=== PATIENT | female | born 1980 | race Two or more races ===

== ENCOUNTER 2022-10-14 11:37 | Outpatient (REF) | payer BC, SELFPAY ==
[2022-10-14 14:03] LABS: MANUAL DIFF FLAG NO
[2022-10-14 14:13] LABS: Basophils Percent Auto 0.5 % (0-2); Eosinophils Absolute Auto 0.2 X10*3/uL (0.0-0.4); Eosinophils Percent Auto 2.3 % (0-4); Hematocrit 38.4 % (37.0-47.0); Hemoglobin 12.8 g/dl (12.0-16.0); Imm Gran Abs Auto 0.01 X10*3/uL (0.00-0.03); Imm Gran Pct Auto 0.1 % (0.0-0.4); Lymphocytes Absolute Auto 2.7 X10*3/uL (1.2-4.9); Lymphocytes Percent Auto 35.6 % (20-40); Mean Corpuscular HGB Conc 33.3 g/dl (31.0-35.0); Mean Corpuscular Hemoglobin 28.9 pg (27.0-33.0); Mean Corpuscular Volume 86.7 fL (80.0-98.0); Mean Platelet Volume 10.3 fL (9.4-12.3); Monocytes Absolute Auto 0.4 X10*3/uL (0.1-1.2); Monocytes Percent Auto 4.8 % (2-11); Neutrophils Absolute Auto 4.2 x10*3/uL (2.0-8.3); Neutrophils Percent Auto 56.7 % (45-73); Platelet Count 334 X10*3/uL (160-400); Red Blood Count 4.43 X10*6/uL (4.20-5.50); Red Cell Distribution Width 12.2 % (11.0-16.0); White Blood Count 7.5 X10*3/uL (4.8-10.8)
[2022-10-14 14:47] LABS: Alanine Aminotransferase 19 U/L (0-31); Albumin Level 4.5 g/dL (3.5-5.0); Alkaline Phosphatase 41 U/L (39-117); Anion Gap 12 (12-20); Aspartate Amino Transferase 21 U/L (5-31); Bilirubin Total 0.3 mg/dL (0.0-1.0); Blood Urea Nitrogen 7 mg/dL (9-16); Calcium 9.4 mg/dL (8.4-10.2); Carbon Dioxide 22 mmol/L (22-29); Chloride 108 mmol/L (96-108); Cholesterol 180 mg/dL; Estimated Glomerular Filt Rate > 60; Glucose Fasting 94 mg/dL (60-99); HDL Cholesterol 34 mg/dL; LDL Cholesterol Calculated 98 mg/dl; Potassium 4.2 mmol/L (3.3-5.1); Sodium 138 mmol/L (135-145); Total Protein 7.7 g/dL (6.5-8.0); Triglycerides 240 mg/dL
[2022-10-14 14:49] LABS: TSH reflex Free T4 1.36 uIU/mL (0.32-4.0)
[2022-10-17 16:23] LABS: Vitamin D 25-OH, D2 <4 ng/mL; Vitamin D 25-OH, D3 31 ng/mL; Vitamin D 25-OH, Total 31 ng/mL (30-100)
== END 2022-10-14 11:38 | disposition home or self-care (01) ==
LOC: HO.HMGCLDS 11:37
PROVIDERS: Visit Provider Internal Medicine
DX: Z00.01 Encounter for general adult medical examination with abnormal findings (principal); E66.3 Overweight; R53.83 Other fatigue
CPT/HCPCS: 36415; 80053; 80061; 82306; 84443; 85025

== ENCOUNTER 2022-11-04 08:21 | Outpatient (REF) | payer BC, SELFPAY ==
--- NOTE | ~2022-11-04 | MM_ITS ---
EXAMINATION: MM SCREENING DIGITAL BREAST TOMOSYNTHESIS, BILATERAL CLINICAL INFORMATION: Screening. Asymptomatic. The lifetime risk of breast cancer based on the Tyrer-Cuzick Model is 7.9%. COMPARISON: Mammography: None TECHNIQUE: Digital breast tomosynthesis is performed in both the craniocaudal and mediolateral oblique views along with computer-aided detection (CAD). Synthesized 2D images are generated from the tomosynthesis. FINDINGS: The breasts are heterogeneously dense, which may obscure small masses (ACR BI-RADS breast composition Category c). No significant right breast abnormality is appreciated. No abnormal dominant mass or suspicious grouping of microcalcifications. There is multiplicity and bilaterality of scattered calcifications. In the retroareolar region of the left breast there is a 5 mm circumscribed density for which spot compression view is recommended. If there is persistence of the density then ultrasound could be performed at that time. MM/MM tomosynthesis screening BI IMPRESSION: Left breast retroareolar density for further evaluation ASSESSMENT: BI-RADS 0: Incomplete - Need Additional Imaging Evaluation RECOMMENDATION: 1. Additional views of the left breast. 2. Targeted ultrasound if warranted after review of the additional views. 3. Radiology department staff will contact the patient for additional imaging. This patient's information was entered into a reminder system with a target due date for their next mammogram.
== END 2022-11-04 08:22 | disposition home or self-care (01) ==
LOC: HO.MAMMO 08:21
PROVIDERS: PCP Internal Medicine; Visit Provider Internal Medicine
DX: Z12.31 Encounter for screening mammogram for malignant neoplasm of breast (principal)
CPT/HCPCS: 77063; 77067

== ENCOUNTER 2022-11-28 15:00 | Outpatient (REF) | payer BC, SELFPAY ==
--- NOTE | ~2022-11-28 | MM_ITS ---
EXAMINATION: MM DIAGNOSTIC DIGITAL BREAST TOMOSYNTHESIS, LEFT TARGETED LEFT BREAST ULTRASOUND CLINICAL INFORMATION: Retroareolar density. COMPARISON: Mammography: 11/04/2022 TECHNIQUE: Digital breast tomosynthesis is performed. 2D images are generated from the tomosynthesis. The following views are obtained: Spot compression views in craniocaudal and mediolateral oblique views. FINDINGS: The breasts are heterogeneously dense, which may obscure small masses (ACR BI-RADS breast composition Category c). Supplementary imaging demonstrates persistence of an approximately 5 x 4 mm circumscribed density about the lateral subareolar region. Targeted ultrasound evaluation demonstrates a 4 x 4 by 4 mm simple-appearing cyst with smooth wall and increased through sound transmission and no sound shadowing. Results are discussed with the patient at time of visit. MM/MM tomosynthesis added views L IMPRESSION: Retroareolar density left breast corresponds to a simple cyst. ASSESSMENT: BI-RADS 2: Benign RECOMMENDATION: Routine annual mammography screening due in 12 months. This patient's information was entered into a reminder system with a target due date for their next mammogram.
== END 2022-11-28 15:01 | disposition home or self-care (01) ==
LOC: HO.MAMMO 15:00
PROVIDERS: PCP Internal Medicine; Visit Provider Internal Medicine
DX: R92.2 Inconclusive mammogram (principal)
CPT/HCPCS: 76642; 77061; 77065

== ENCOUNTER 2023-11-17 08:38 | Outpatient (AMB) | payer BC, SELFPAY ==
[2023-11-17 08:45] VITALS: BP 120/78; PULSE 84; O2SAT 100; BMI 27.8
--- NOTE | 2023-11-17 08:45 | A.OFFPC_ITS ---
Vital Signs 11/17/23 08:45 Height 5 ft 1 in Weight 147 lb 2 oz BMI 27.8 BP 120/78 Blood Pressure Location Lt brachial Position Sitting Pulse 84 Pulse Source Pulse Oximeter Pulse Oximetry (%) 100 Oxygen Delivery Method Room Air Intake Visit Reasons: Annual PE Allergies Environmental Allergy (Unknown, Uncoded 11/17/23 08:48) Unknown pollen Allergy (Unknown, Uncoded 11/17/23 08:48) Unknown Medication List - Last Reconciled 11/17/23 by Tavares Richardson MD No Known Home Meds Tobacco use date assessed: 11/17/23 Dental Screening Dental Screen Date: 11/17/23 Did you have a dental visit in the last 12 months?: No Did you have a dental problem in the last 6 months where you did not have access to dental care?: No Was dental information given to patient?: Patient has dentist HPI Annual PE HPI Details Patient is a 43-year-old female came in today for physical examination Patient is concerned about her weight her BMI is 27.8, we talked about losing about for 5 lb to become in normal BMI range She is exercising and trying to eat healthy Also complaining of some hair loss, on examination she does not have any scalp condition And I do not see any bald spots Labs were done last year reviewed Lipids are within normal range, no anemia, no elevation of fasting sugar, vitamin-D level was normal, and TSH level was normal We will be skipping labs this year She will be due for mammogram in November order placed Patient have OBGYN at [facility]. Breast exam was done today [facility] Social History Housing: House Patient Tobacco Use Status: Never used Tobacco e-Cigarette/Vaping Use: Never Used service: No Current occupational status: employed Cognitive needs: No Hearing needs: No Vision needs: Yes Questionnaire PHQ-9 Over the last 2 weeks, how often have you been bothered by any of the following problems? 1. Little interest or pleasure in doing things: not at all 2. Feeling down, depressed, or hopeless: several days 3. Trouble falling or staying asleep, or sleeping too much: not at all 4. Feeling tired or having little energy: several days 5. Poor appetite or overeating: not at all 6. Feeling bad about yourself - or that you are a failure or have let yourself or your family down: several days 7. Trouble concentrating on things, such as reading the newspaper or watching television: not at all 8. Moving or speaking so slowly that other people could have noticed. Or the opposite - being so fidgety or restless that you have been moving around a lot more than usual: not at all 9. Thoughts that you would be better off or of hurting yourself in some way: not at all Total score: 3 Depression Screening Interpretation: Negative Depression Screening Done: Yes 80817 - PHQ-9 Billing: Yes Source: Developed by Drs. Daquan Sam, Stephanie Austin, Rommel Stephens and colleagues, with an educational julia from [employer]. Thrive Questionnaire Date Thrive assessed: 11/17/23 I am a: Patient What is your living situation today?: I have a steady place to live Within the past 12 months, did the food you bought not last and you didn't have the money to get more?: Never true Within the past 12 months, did you worry whether your food would run out before you got money to buy more?: Never true Do you have trouble paying for medicines?: No Do you have trouble getting transportation to medical appointments?: No Do you have trouble paying your heating and electricity bill?: No Do you have trouble taking care of your child, family member or friend?: No Do you have trouble with day-to-day activities such as bathing, preparing meals, shopping, managing finances, etc.?: No Are you currently unemployed and looking for a job?: No Are you interested in more education?: No Please select the resources that you would like help with: None Currently or been in a relationship where the following occur: no concerns reported THRIVE Score: 0 DAMEON-7 AMB Questionnaire DAMEON-7 Date DAMEON - 7 assessed: 11/17/23 Feeling nervous, anxious, or on edge: 1 = Several days Not being able to stop or control worryin = Several days Worrying too much about different things: 1 = Several days Trouble relaxin = Not at all Being so restless that it is hard to sit still: 0 = Not at all Becoming easily annoyed or irritable: 0 = Not at all Feeling afraid as if something awful might happen: 0 = Not at all Total DAMEON-7 score (0-4 normal; 5-9 mild; 10-14 moderate; 15-21 severe): 3 Source: Developed by Drs. Daquan Sam, Stephanie Austin, Rommel Stephens and colleagues, with an educational julia from [employer]. DAMEON-7 Assessment Billing DAMEON-7 Assessment Tool: DAMEON-7 Assessment 71648 Review of Systems Const Denies chills, Denies fever(s) and Denies headache(s) Eyes Denies blurry vision ENT Denies headache(s), Denies nasal discharge, Denies nasal obstruction, Denies odynophagia and Denies sinus pain Card Denies chest pain at rest and Denies chest pain with activity Resp Denies cough and Denies hemoptysis GI Denies diarrhea, Denies odynophagia, Denies vomiting and Denies hematemesis Reports as per HPI Musc Denies abnormal gait Skin/Breast Reports as per HPI Neuro Denies Neuro-related abnormal movements, Denies Abnormal speech present, Denies abnormal gait, Denies headache(s) and Denies Sensory deficit (Neuro) Psych Denies mood swings and Denies paranoia Endo Reports as per HPI Bassem/Lymph Reports as per HPI Aller/Immun Reports as per HPI Physical exam (Primary Care) Vital Signs: Last Vital Signs Pulse 84 11/17/23 08:45 BP 120/78 11/17/23 08:45 Pulse Ox 100 11/17/23 08:45 Oxygen Delivery Method Room Air 11/17/23 08:45 BMI result Body Mass Index 27.8 Tobacco/Smoking Status: Tobacco use Status Tobacco use date assessed 11/17/23 11/17/23 08:48 Patient Tobacco Use Status Never used Tobacco 11/17/23 08:48 e-Cigarette/Vaping Use Never Used 11/17/23 08:48 PHQ-9: PHQ-9 Score PHQ-9: Total score 3 11/17/23 09:23 Depression Screening Interpretation: Negative Thrive Assessment: Date of Thrive Assessment Date Thrive assessed 11/17/23 11/17/23 09:23 Currently or been in a relationship where the following occur: no concerns reported Const General: cooperative, comfortable and no acute distress Orientation/consciousness: patient oriented x3 HENMT Head: Yes normocephalic and Yes atraumatic Eyes General: appearance normal, both eyes and all related structures Pupils: Equal, round and reactive pupils present EOM: EOMs intact bilaterally Neck Neck: Yes supple and No lymphadenopathy Thyroid: Thyroid normal Lymphatic: no lymphadenopathy noted Chest Breast/axilla palpation: normal palpation of the breasts Resp Effort & Inspection: normal respiratory effort and able to speak in complete sentences Auscultation: clear to auscultation bilaterally Cardio Heart sounds: S1 normal heart sound present and S2 normal heart sound present GI Palpation (GI): Soft to palpation and nontender Auscultation: normal bowel sounds General: Yes no CVA tenderness Back/Spine/Pelvis Back: no CVA tenderness Skin General skin exam: elasticity normal and turgor normal Neuro General: patient oriented x3 and gait normal Cranial nerves: Yes Equal, round and reactive pupils present Speech: No Abnormal speech present Sensory Exam: No Sensory deficit (Neuro) Coordination: tandem gait normal and Romberg test negative Extrem General: Yes normal exam except as noted and No edema Assessment and Plan Assessment & Plan (1) Encounter for general adult medical examination with abnormal findings: Code(s): Z00.01 - Encounter for general adult medical examination with abnormal findings (2) Overweight (BMI 25.0-29.9): Code(s): E66.3 - Overweight Plan Patient is a 43-year-old female came in today for physical examination Patient is concerned about her weight her BMI is 27.8, we talked about losing about for 5 lb to become in normal BMI range She is exercising and trying to eat healthy Also complaining of some hair loss, on examination she does not have any scalp condition And I do not see any bald spots Labs were done last year reviewed Lipids are within normal range, no anemia, no elevation of fasting sugar, vitamin-D level was normal, and TSH level was normal We will be skipping labs this year She will be due for mammogram in November order placed Patient have OBGYN at [facility]. Breast exam was done today Orders: Orders MM tomosynthesis screening BI Today Z12.31 - Encounter for screening mammogram for malignant neoplasm of breast Coding Level of Care Code Est Pt Prev Care 40-64y(90719) Diagnoses Encounter for general adult medical examination with abnormal findings Z00.01 Overweight (BMI 25.0-29.9) E66.3 Additional Codes DAMEON-7 Assessment Billing - DAMEON-7 Assessment Tool: DAMEON-7 Assessment [id number] ([id number])
== END 2023-11-17 09:06 | disposition home or self-care (01) ==
PROVIDERS: PCP Internal Medicine; Visit Provider Internal Medicine
DX: Z00.00 Encounter for general adult medical examination without abnormal findings (principal); E66.3 Overweight; Z68.27 Body mass index [BMI] 27.0-27.9, adult
CPT/HCPCS: 99396

== ENCOUNTER → 2023-12-01 16:30 | Outpatient (BNV) | payer BC, SELFPAY | PROVIDERS: PCP Internal Medicine; Visit Provider Radiology Diagnostic Radiology | DX: Z12.31 Encounter for screening mammogram for malignant neoplasm of breast (principal) | CPT/HCPCS: 77063; 77067 ==

== ENCOUNTER 2023-12-01 16:34 | Outpatient (REF) | payer BC, SELFPAY ==
--- NOTE | ~2023-12-01 | MM_ITS ---
EXAMINATION: MM SCREENING DIGITAL BREAST TOMOSYNTHESIS, BILATERAL CLINICAL INFORMATION: Screening. Asymptomatic. COMPARISON: Mammography: 11/04/2022. Ultrasound left breast 11/28/2022 along with diagnostic left mammography 11/28/2022. TECHNIQUE: Digital breast tomosynthesis is performed in both the craniocaudal and mediolateral oblique views along with computer-aided detection (CAD). Synthesized 2D images are generated from the tomosynthesis. FINDINGS: The breasts are heterogeneously dense, which may obscure small masses (ACR BI-RADS breast composition Category c). There are no suspicious masses, suspicious grouped calcifications, or areas of architectural distortion in either breast. The parenchymal pattern is stable from prior exams. Skin or axillary abnormality. MM/MM tomosynthesis screening BI IMPRESSION: No mammographic evidence of malignancy. ASSESSMENT: BI-RADS BI-RADS 1 - Negative RECOMMENDATION: Routine annual mammography screening. 1 year F/U This examination should not preclude the clinical evaluation of a suspicious palpable abnormality. This patient's information was entered into a reminder system with a target due date for their next mammogram.
== END 2023-12-01 16:35 | disposition home or self-care (01) ==
LOC: HO.MAMMO 16:34
PROVIDERS: PCP Internal Medicine; Visit Provider Internal Medicine
DX: Z12.31 Encounter for screening mammogram for malignant neoplasm of breast (principal)
CPT/HCPCS: 77063; 77067

== ENCOUNTER 2024-11-23 10:42 | Outpatient (AMB) | payer BC, SELFPAY ==
[2024-11-23 10:43] VITALS: BP 112/76; PULSE 110; TEMP 36.6; O2SAT 97; BMI 27.5
--- NOTE | 2024-11-23 10:43 | A.OFFPC_ITS ---
Vital Signs 11/23/24 10:43 Height 5 ft 1 in Weight 145 lb 8 oz BMI 27.5 BP 112/76 Blood Pressure Location Rt brachial Position Sitting Pulse 110 H Pulse Source Pulse Oximeter Temp 98 F Temp Source Oral Pulse Oximetry (%) 97 Oxygen Delivery Method Room Air Intake Visit Reasons: Annual PE Allergies Environmental Allergy (Unknown, Uncoded 11/17/23 08:48) Unknown pollen Allergy (Unknown, Uncoded 11/17/23 08:48) Unknown Medication List - Last Reconciled 11/23/24 by Tavares Richardson MD No Known Home Meds Tobacco use date assessed: 11/23/24 Dental Screening Dental Screen Date: 11/23/24 Did you have a dental visit in the last 12 months?: Yes Did you have a dental problem in the last 6 months where you did not have access to dental care?: No Was dental information given to patient?: Patient has dentist HPI Annual PE HPI Details Physical exam appointment - The patient is a 44-year-old female pr esenting with neck pain and anxiety. - Intermittent neck pain, headaches, and leg cramps, exacerbated by certain sleeping positions. - Reports significant snoring and concer ns about possible sleep apnea; plans to evaluate further. Feel tired during the day and sleepy - Anxiety symptoms present with occasion al mini panic attacks and claustrophobic tendencies reported. - Family history of diabetes, although p ersonal blood sugar levels remain within normal ranges. Health Maintenance - Sleep apnea discussed, patient advised on lifestyle modifications like adjusting pillow height and sleeping positions to alleviate neck pain. - Colonoscopy discussed as part of [facility] cancer screening for age 45; patient to educate herself about the procedure before deciding. Employment - Anxiety exacerbated during work. Patient Instructions - Monitor neck pain and adjust sleeping positions as required; consider using a thinner pillow. - Maintain awareness of breathing and an xiety symptoms; record triggering activities or events. - Educate self about sleep apnea and col onoscopy procedures; decide on proceeding with any tests. - New prescription for anxiety managemen t to be taken once daily with breakfast; re-evaluate effectiveness after a month. Lexapro 5 mg sent - sleep study ordered - labs to be done fasting And then returned for follow-up, think about colonoscopy Review of Systems - General: No fever no chills - Neurological: No headaches no dizzin ess - Ear nose throat: No sore throat no hearing difficulty no ear pain - Cardiovascular: No syncope, no chest pain, no palpitations - Gastrointestinal: No nausea vomiting or diarrhea - Endocrine: No polyuria polydipsia no heat intolerance - Genitourinary: No dysuria - Skin: No new complaints Physical Exam General: Cooperative, healthy appearing, comfortable, no acute distress Orientation: Patient oriented x3 Limitations: None Head: Normal to inspection Ears: Within normal limit visually Nose: Normal external nose present Face and sinus: Normal facial exam Eyes: Appearance normal, extraocular movement intact pupils reactive Neck: Normal visual inspection and supple, patient reports occasional neck pain Respiratory: Normal respiratory effort and able to speak in complete sentences. Clear to auscultation, no stridor. Patient reports occasional suffocation feeling and snoring at night Cardiovascular: S1 and S2 GI: Normal to inspection. Soft to palpation and nontender Skin: Turgor normal, no acute findings Neuro: Patient oriented x3, motor sensory intact, balance intact, tandem pass Extremities: Normal to inspection, patient reports occasional leg cramps [facility] Social History Housing: House Patient Tobacco Use Status: Never used Tobacco e-Cigarette/Vaping Use: Never Used service: No Current occupational status: employed Cognitive needs: No Hearing needs: No Vision needs: Yes Questionnaire Thrive Questionnaire Date Thrive assessed: 11/17/23 DAMEON-7 AMB Questionnaire DAMEON-7 Date DAMEON - 7 assessed: 11/17/23 Source: Developed by Drs. Daquan Sam, Stephanie Austin, Rommel Stephens and colleagues, with an educational julia from [employer]. Physical exam (Primary Care) Vital Signs: Last Vital Signs Temp 98 F 11/23/24 10:43 Pulse 110 H 11/23/24 10:43 BP 112/76 11/23/24 10:43 Pulse Ox 97 11/23/24 10:43 Oxygen Delivery Method Room Air 11/23/24 10:43 BMI result Body Mass Index 27.5 Tobacco/Smoking Status: Tobacco use Status Tobacco use date assessed 11/23/24 11/23/24 10:49 Patient Tobacco Use Status Never used Tobacco 11/23/24 10:43 e-Cigarette/Vaping Use Never Used 11/23/24 10:43 Thrive Assessment: Date of Thrive Assessment Date Thrive assessed 11/17/23 11/23/24 10:43 Coding Level of Care Code Est Pt Level 4 (01325) Est Pt Prev Care 40-64y(56551) Diagnoses Encounter for general adult medical examination with abnormal findings Z00.01 Chest heaviness R07.89 Shortness of breath R06.02 Snoring R06.83 Excessive daytime sleepiness G47.19 Overweight (BMI 25.0-29.9) E66.3 Tired R53.83 Vitamin D deficiency E55.9 Family history of diabetes mellitus Z83.3 Assessment & Plan Assessment & Plan (1) Encounter for general adult medical examination with abnormal findings: Code(s): Z00.01 - Encounter for general adult medical examination with abnormal findings Category: Medical (2) Chest heaviness: Code(s): R07.89 - Other chest pain Category: Medical (3) Shortness of breath: Code(s): R06.02 - Shortness of breath Category: Medical (4) Snoring: Code(s): R06.83 - Snoring Category: Medical (5) Excessive daytime sleepiness: Code(s): G47.19 - Other hypersomnia Category: Medical (6) Overweight (BMI 25.0-29.9): Code(s): E66.3 - Overweight Category: Medical (7) Tired: Code(s): R53.83 - Other fatigue Category: Medical (8) Vitamin D deficiency: Code(s): E55.9 - Vitamin D deficiency, unspecified Category: Medical (9) Family history of diabetes mellitus: Code(s): Z83.3 - Family history of diabetes mellitus Category: Medical Plan Physical exam appointment - The patient is a 44-year-old female presenting with neck pain and anxiety. - Intermittent neck pain, headaches, and leg cramps, exacerbated by certain sleeping positions. - Reports significant snoring and concerns about possible sleep apnea; plans to evaluate further. Feel tired during the day and sleepy - Anxiety symptoms present with occasional mini panic attacks and claustrophobic tendencies reported. - Family history of diabetes, although personal blood sugar levels remain within normal ranges. Health Maintenance - Sleep apnea discussed, patient advised on lifestyle modifications like adjusting pillow height and sleeping positions to alleviate neck pain. - Colonoscopy discussed as part of routine cancer screening for age 45; patient to educate herself about the procedure before deciding. Employment - Anxiety exacerbated during work. Patient Instructions - Monitor neck pain and adjust sleeping positions as required; consider using a thinner pillow. - Maintain awareness of breathing and anxiety symptoms; record triggering activities or events. - Educate self about sleep apnea and colonoscopy procedures; decide on proceeding with any tests. - New prescription for anxiety management to be taken once daily with breakfast; re-evaluate effectiveness after a month. Lexapro 5 mg sent - sleep study ordered - labs to be done fasting And then returned for follow-up, think about colonoscopy Orders: Orders Lipid Panel Today E55.9 - Vitamin D deficiency, unspecified, E66.3 - Overweight, R53.83 - Other fatigue, Z00.01 - Encounter for general adult medical examination with abnormal findings Vitamin D 25-OH (D2 and D3) Today E55.9 - Vitamin D deficiency, unspecified, E66.3 - Overweight, R53.83 - Other fatigue, Z00.01 - Encounter for general adult medical examination with abnormal findings Vitamin B12 Today E55.9 - Vitamin D deficiency, unspecified, E66.3 - Overweight, R06.02 - Shortness of breath, R07.89 - Other chest pain, R53.83 - Other fatigue, Z00.01 - Encounter for general adult medical examination with abnormal findings, Z83.3 - Family history of diabetes mellitus TSH reflex Free T4 Today E55.9 - Vitamin D deficiency, unspecified, E66.3 - Overweight, R06.02 - Shortness of breath, R07.89 - Other chest pain, R53.83 - Other fatigue, Z00.01 - Encounter for general adult medical examination with abnormal findings, Z83.3 - Family history of diabetes mellitus Magnesium Today E55.9 - Vitamin D deficiency, unspecified, E66.3 - Overweight, R06.02 - Shortness of breath, R07.89 - Other chest pain, R53.83 - Other fatigue, Z00.01 - Encounter for general adult medical examination with abnormal findings, Z83.3 - Family history of diabetes mellitus Hemoglobin A1c Today E55.9 - Vitamin D deficiency, unspecified, E66.3 - Overweight, R06.02 - Shortness of breath, R07.89 - Other chest pain, R53.83 - Other fatigue, Z00.01 - Encounter for general adult medical examination with abnormal findings, Z83.3 - Family history of diabetes mellitus Complete Blood Count Auto Diff Today E55.9 - Vitamin D deficiency, unspecified, E66.3 - Overweight, R53.83 - Other fatigue, Z00.01 - Encounter for general adult medical examination with abnormal findings Comprehensive [place]. Panel Fast Today E55.9 - Vitamin D deficiency, unspecified, E66.3 - Overweight, R53.83 - Other fatigue, Z00.01 - Encounter for general adult medical examination with abnormal findings RT home sleep study Today G47.19 - Other hypersomnia, R06.83 - Snoring, R53.83 - Other fatigue Medications: New escitalopram oxalate (Lexapro) 5 mg PO DAILY 30 tabs 0RF
== END 2024-11-23 11:20 | disposition home or self-care (01) ==
PROVIDERS: PCP Internal Medicine; Visit Provider Internal Medicine
DX: Z00.00 Encounter for general adult medical examination without abnormal findings (principal); R07.89 Other chest pain; R06.02 Shortness of breath; R06.83 Snoring; G47.19 Other hypersomnia; E66.3 Overweight; R53.83 Other fatigue; E55.9 Vitamin D deficiency, unspecified; Z83.3 Family history of diabetes mellitus

== ENCOUNTER → 2024-11-23 10:42 | Outpatient (BNVA) | payer BC, SELFPAY | PROVIDERS: PCP Internal Medicine; Visit Provider Internal Medicine | DX: Z00.01 Encounter for general adult medical examination with abnormal findings (principal); R07.89 Other chest pain; R06.02 Shortness of breath; R06.83 Snoring; G47.19 Other hypersomnia; E66.3 Overweight; Z68.27 Body mass index [BMI] 27.0-27.9, adult; R53.83 Other fatigue; E55.9 Vitamin D deficiency, unspecified; F41.9 Anxiety disorder, unspecified; Z83.3 Family history of diabetes mellitus | CPT/HCPCS: 93005 ==

== ENCOUNTER 2024-11-30 09:19 | Outpatient (REF) | payer BC, SELFPAY ==
[2024-11-30 13:38] LABS: MANUAL DIFF FLAG NO
[2024-11-30 13:45] LABS: Basophils Percent Auto 0.6 % (0-2); Eosinophils Absolute Auto 0.2 X10*3/uL (0.0-0.4); Eosinophils Percent Auto 2.3 % (0-4); Hemoglobin 12.5 g/dl (12.0-16.0); Imm Gran Abs Auto 0.01 X10*3/uL (0.00-0.03); Imm Gran Pct Auto 0.1 % (0.0-0.4); Lymphocytes Absolute Auto 2.8 X10*3/uL (1.2-4.9); Mean Corpuscular HGB Conc 32.9 g/dl (31.0-35.0); Mean Corpuscular Hemoglobin 28.2 pg (27.0-33.0); Mean Corpuscular Volume 85.8 fL (80.0-98.0); Mean Platelet Volume 10.4 fL (9.4-12.3); Monocytes Absolute Auto 0.4 X10*3/uL (0.1-1.2); Monocytes Percent Auto 6.1 % (2-11); Neutrophils Absolute Auto 3.8 x10*3/uL (2.0-8.3); Neutrophils Percent Auto 52.9 % (45-73); Platelet Count 317 X10*3/uL (160-400); Red Blood Count 4.43 X10*6/uL (4.20-5.50); Red Cell Distribution Width 12.2 % (11.0-16.0); White Blood Count 7.2 X10*3/uL (4.8-10.8)
[2024-11-30 13:52] LABS: Estimated Average Glucose 111 mg/dL; Hemoglobin A1C 121.3808 umol/L; Hemoglobin A1c % 5.5 % (<6.0); Total Hemoglobin (HGBA1C) 3278.3757 umol/L
[2024-11-30 14:10] LABS: Alanine Aminotransferase 24 U/L (0-31); Albumin Level 4.4 g/dL (3.5-5.0); Alkaline Phosphatase 47 U/L (39-117); Anion Gap 9 (12-20); Aspartate Amino Transferase 25 U/L (5-31); Bilirubin Total 0.4 mg/dL (0.0-1.0); Blood Urea Nitrogen 7 mg/dL (9-16); Calcium 9.6 mg/dL (8.4-10.2); Carbon Dioxide 28 mmol/L (22-29); Chloride 105 mmol/L (96-108); Cholesterol 177 mg/dL (<200); Estimated Glomerular Filt Rate > 60; Glucose Fasting 100 mg/dL (60-99); HDL Cholesterol 34 mg/dL (>40); LDL Cholesterol Calculated 100 mg/dL (<100); Magnesium 2.2 mg/dL (1.6-2.6); Potassium 4.4 mmol/L (3.3-5.1); Sodium 138 mmol/L (135-145); Total Protein 8.1 g/dL (6.5-8.0); Triglycerides 216 mg/dL (<150)
[2024-11-30 14:12] LABS: TSH reflex Free T4 1.84 uIU/mL (0.32-4.0)
[2024-11-30 14:30] LABS: Vitamin B12 300 pg/mL (200-900)
[2024-12-05 16:18] LABS: Vitamin D 25-OH, D2 <4 ng/mL; Vitamin D 25-OH, D3 26 ng/mL; Vitamin D 25-OH, Total 26 ng/mL (30-100)
== END 2024-11-30 09:20 | disposition home or self-care (01) ==
LOC: HO.HMGCLDS 09:19
PROVIDERS: PCP Internal Medicine; Visit Provider Internal Medicine
DX: Z00.01 Encounter for general adult medical examination with abnormal findings (principal); E66.3 Overweight; R53.83 Other fatigue; E55.9 Vitamin D deficiency, unspecified; Z83.3 Family history of diabetes mellitus; R06.02 Shortness of breath; R07.89 Other chest pain; Z13.1 Encounter for screening for diabetes mellitus
CPT/HCPCS: 36415; 80053; 80061; 82306; 82607; 83036; 83735; 84443; 85025

== ENCOUNTER 2024-12-14 08:41 | Outpatient (AMB) | payer BC, SELFPAY ==
[2024-12-14 08:44] VITALS: BP 116/72; PULSE 97; O2SAT 99; BMI 27.2
--- NOTE | 2024-12-14 08:44 | MHC.PC.OV ---
Vital Signs 12/14/24 08:44 Height 5 ft 1 in Weight 144 lb 2 oz BMI 27.2 BP 116/72 Blood Pressure Location Lt brachial Position Sitting Pulse 97 Pulse Source Pulse Oximeter Pulse Oximetry (%) 99 Oxygen Delivery Method Room Air Intake Visit Reasons: 3 week follow up Allergies Environmental Allergy (Unknown, Uncoded 11/17/23 08:48) Unknown pollen Allergy (Unknown, Uncoded 11/17/23 08:48) Unknown Medication List - Last Reconciled 12/14/24 by Tavares Richardson MD escitalopram oxalate (Lexapro) 5 mg PO DAILY Tobacco use date assessed: 12/14/24 Dental Screening Dental Screen Date: 12/14/24 Did you have a dental visit in the last 12 months?: Yes Did you have a dental problem in the last 6 months where you did not have access to dental care?: No Was dental information given to patient?: Patient has dentist HPI 3 week follow up HPI Details History - The patient is a 44-year-old female presenting with a wellness visit with discussion on managing prediabetes and vitamin D deficiency. - Prediabetes: Fasting glucose is 100 mg/dL and A1c is 5.7%, indicating prediabetes. The patient has a family history of diabetes. Advised to modify her diet, particularly reducing intake of grains like quinoa and rice. The importance of weight loss was emphasized, given her BMI of 27.2. Discussion included symptoms of tiredness post meals. - Vitamin D deficiency: Persistent low levels despite supplementation, advised to continue supplementation daily. Problem List - Prediabetes - Vitamin D deficiency Patient Instructions - Maintain a healthy diet focusing on reducing sugar intake and avoiding flour-based products like bread and white rice. - Engage in regular physical exercise to support weight management. - Continue daily Vitamin D supplementation as directed. - Educate yourself on nutrition, possibly seeking resources or a consultation with a english lecturer if additional guidance is needed. - Schedule next year?s physical examination and set up a patient portal for accessing future lab results and medical records. - Monitor health and inform us if symptoms like fatigue after eating persist or worsen. Review of Systems - General: No fever no chills - Neurological: No headaches no dizziness - Ear nose throat: No sore throat no hearing difficulty no ear pain - Cardiovascular: No syncope, no chest pain, no palpitations - Gastrointestinal: No nausea vomiting or diarrhea - Endocrine: No polyuria polydipsia no heat intolerance - Genitourinary: No dysuria , no blood in urine Physical Exam - General: No acute distress - HEENT: No acute findings - Neck: Supple - Respiratory system: Able to talk in full sentences, no audible wheeze - Extremities: No new findings - BALLET DANCER: Alert awake oriented x3 motor sensory intact - Skin: Normal turgor [facility] Social History Housing: House Patient Tobacco Use Status: Never used Tobacco e-Cigarette/Vaping Use: Never Used service: No Current occupational status: employed Cognitive needs: No Hearing needs: No Vision needs: Yes Questionnaire PHQ-9 Over the last 2 weeks, how often have you been bothered by any of the following problems? 1. Little interest or pleasure in doing things: not at all 2. Feeling down, depressed, or hopeless: not at all 3. Trouble falling or staying asleep, or sleeping too much: not at all 4. Feeling tired or having little energy: not at all 5. Poor appetite or overeating: not at all 6. Feeling bad about yourself - or that you are a failure or have let yourself or your family down: not at all 7. Trouble concentrating on things, such as reading the newspaper or watching television: not at all 8. Moving or speaking so slowly that other people could have noticed. Or the opposite - being so fidgety or restless that you have been moving around a lot more than usual: not at all 9. Thoughts that you would be better off or of hurting yourself in some way: not at all Total score: 0 Depression Screening Interpretation: Negative Depression Screening Done: Yes 65537 - PHQ-9 Billing: Yes Source: Developed by Drs. Daquan Sam, Stephanie Austin, Rommel Stephens and colleagues, with an educational julia from [employer]. Thrive Questionnaire Date Thrive assessed: 12/14/24 I am a: Patient What is your living situation today?: I have a steady place to live Within the past 12 months, did the food you bought not last and you didn't have the money to get more?: Never true Within the past 12 months, did you worry whether your food would run out before you got money to buy more?: Never true Do you have trouble paying for medicines?: No Do you have trouble getting transportation to medical appointments?: No Do you have trouble paying your heating and electricity bill?: No Do you have trouble taking care of your child, family member or friend?: No Do you have trouble with day-to-day activities such as bathing, preparing meals, shopping, managing finances, etc.?: No Are you currently unemployed and looking for a job?: No Are you interested in more education?: No Please select the resources that you would like help with: None Currently or been in a relationship where the following occur: No concerns reported THRIVE Score: 0 AUDIT C Alcohol Use Questionnaire (AUDIT-C) 1. How often do you have a drink containing alcohol?: Never 3. How often do you have six or more drinks on one occasion?: Never Total Score: 0 Score Reviewed/Action Taken: Yes DAMEON-7 AMB Questionnaire DAMEON-7 Date DAMEON - 7 assessed: 12/14/24 Feeling nervous, anxious, or on edge: 0 = Not at all Not being able to stop or control worryin = Not at all Worrying too much about different things: 0 = Not at all Trouble relaxin = Not at all Being so restless that it is hard to sit still: 0 = Not at all Becoming easily annoyed or irritable: 0 = Not at all Feeling afraid as if something awful might happen: 0 = Not at all Total DAMEON-7 score (0-4 normal; 5-9 mild; 10-14 moderate; 15-21 severe): 0 Source: Developed by Drs. Daquan Sam, Stephanie Austin, Rommel Stephens and colleagues, with an educational julia from [employer]. DAMEON-7 Assessment Billing DAMEON-7 Assessment Tool: DAMEON-7 Assessment 52284 Physical exam (Primary Care) Vital Signs: Last Vital Signs Pulse 97 12/14/24 08:44 BP 116/72 12/14/24 08:44 Pulse Ox 99 12/14/24 08:44 Oxygen Delivery Method Room Air 12/14/24 08:44 BMI result Body Mass Index 27.2 Tobacco/Smoking Status: Tobacco use Status Tobacco use date assessed 12/14/24 12/14/24 08:54 Patient Tobacco Use Status Never used Tobacco 12/14/24 08:44 e-Cigarette/Vaping Use Never Used 12/14/24 08:44 PHQ-9: PHQ-9 Score PHQ-9: Total score 0 12/14/24 09:06 Depression Screening Interpretation: Negative Thrive Assessment: Date of Thrive Assessment Date Thrive assessed 12/14/24 12/14/24 08:54 Currently or been in a relationship where the following occur: No concerns reported Coding Level of Care Code Est Pt Level 3 (04898) Diagnoses Prediabetes R73.03 Vitamin D deficiency E55.9 Tired R53.83 Overweight (BMI 25.0-29.9) E66.3 Additional Codes DAMEON-7 Assessment Billing - DAMEON-7 Assessment Tool: DAMEON-7 Assessment 26771 ([id number]) PHQ-9 - 88673 - PHQ-9 Billing: Yes ([id number]) Assessment & Plan Assessment & Plan (1) Prediabetes: Code(s): R73.03 - Prediabetes Category: Medical (2) Vitamin D deficiency: Code(s): E55.9 - Vitamin D deficiency, unspecified Category: Medical (3) Tired: Code(s): R53.83 - Other fatigue Category: Medical (4) Overweight (BMI 25.0-29.9): Code(s): E66.3 - Overweight Category: Medical Plan History - The patient is a 44-year-old female presenting with a wellness visit with discussion on managing prediabetes and vitamin D deficiency. - Prediabetes: Fasting glucose is 100 mg/dL and A1c is 5.7%, indicating prediabetes. The patient has a family history of diabetes. Advised to modify her diet, particularly reducing intake of grains like quinoa and rice. The importance of weight loss was emphasized, given her BMI of 27.2. Discussion included symptoms of tiredness post meals. - Vitamin D deficiency: Persistent low levels despite supplementation, advised to continue supplementation daily. Problem List - Prediabetes - Vitamin D deficiency Patient Instructions - Maintain a healthy diet focusing on reducing sugar intake and avoiding flour-based products like bread and white rice. - Engage in regular physical exercise to support weight management. - Continue daily Vitamin D supplementation as directed. - Educate yourself on nutrition, possibly seeking resources or a consultation with a english lecturer if additional guidance is needed. - Schedule next year?s physical examination and set up a patient portal for accessing future lab results and medical records. - Monitor health and inform us if symptoms like fatigue after eating persist or worsen. Orders: Orders SIMONE CC w/rflx Micro + Cult Today R73.03 - Prediabetes
== END 2024-12-14 09:10 | disposition home or self-care (01) ==
LOC: HO.HMCC 08:42
PROVIDERS: PCP Internal Medicine; Visit Provider Internal Medicine
DX: R73.03 Prediabetes (principal); E55.9 Vitamin D deficiency, unspecified; R53.83 Other fatigue; E66.3 Overweight

== ENCOUNTER → 2024-12-14 08:41 | Outpatient (BNVA) | payer BC, SELFPAY | PROVIDERS: PCP Internal Medicine; Visit Provider Internal Medicine | DX: R73.03 Prediabetes (principal); E55.9 Vitamin D deficiency, unspecified; R53.83 Other fatigue; E66.3 Overweight; Z68.27 Body mass index [BMI] 27.0-27.9, adult | CPT/HCPCS: 96127 ==

== ENCOUNTER → 2025-01-31 13:12 | Outpatient (REF) | payer BC, SELFPAY | LOC: HO.SL 13:12 | PROVIDERS: PCP Internal Medicine; Visit Provider Internal Medicine | DX: G47.19 Other hypersomnia (principal); R06.83 Snoring; R53.83 Other fatigue | CPT/HCPCS: 95806 ==

== ENCOUNTER → 2025-02-01 13:31 | Outpatient (BNV) | payer BC, SELFPAY | PROVIDERS: PCP Internal Medicine; Visit Provider Internal Medicine | DX: R06.83 Snoring (principal) | CPT/HCPCS: 95806 ==

== ENCOUNTER 2025-02-14 16:28 | Outpatient (REF) | payer BC, SELFPAY | END 2025-02-14 16:29 | disposition home or self-care (01) | LOC: HO.MAMMO 16:28 | PROVIDERS: PCP Internal Medicine; Visit Provider Internal Medicine | DX: Z12.31 Encounter for screening mammogram for malignant neoplasm of breast (principal) | CPT/HCPCS: 77063; 77067 ==

== ENCOUNTER → 2025-02-14 16:30 | Outpatient (BNV) | payer BC, SELFPAY | PROVIDERS: PCP Internal Medicine; Visit Provider Internal Medicine | DX: Z12.31 Encounter for screening mammogram for malignant neoplasm of breast (principal) | CPT/HCPCS: 77063; 77067 ==